=== PATIENT | male | born 1965 | race American Indian/Alaskan Native ===

== ENCOUNTER 2018-05-19 15:13 | Inpatient (IN) | payer OTHER, SELFPAY ==
[2018-05-19] MEDS ORDERED: NACL 0.9% 1000 ML 1,000 ML IV ONE (15:25)
--- NOTE | 2018-05-19 15:25 | Event Note ---
Date: 05/19/18 Patient presents to emergency room with facial pressure, dizziness and abdominal discomfort. Also complains of generalized weakness. No complaint of chest pain. Found to be hypotensive. Blood pressure in the 80s, EKG abnormal without prior for comparison. Brought back to the emergency room, placed in room one, initial resuscitation has been requested/ordered.
[2018-05-19 16:05] LABS: Basophils # (Auto) 0.1 K/mm3 (0.0-0.1); Basophils % (Auto) 0.6 % (0.0-1.8); Eosinophils % (Auto) 0.4 % (0.0-4.3); Hematocrit 51.8 % (35.5-45.6); Lymphocytes % (Auto) 11.5 % (13.4-35.0); Mean Corpuscular HGB Conc 33 % (32-34); Mean Corpuscular Volume 86 fl (84-94); Monocytes # (Auto) 0.6 K/mm3 (0.0-0.8); Monocytes % (Auto) 6.6 % (0.0-7.3); Platelet Count 221 K/mm3 (140-440); Red Blood Count 6.06 M/mm3 (3.65-5.03); Red Cell Distribution Width 13.7 % (13.2-15.2)
[2018-05-19 16:09] LABS: INR 0.97 (0.87-1.13); Partial Thromboplastin Time 21.9 Sec. (24.2-36.6)
[2018-05-19 16:22] LABS: Albumin 4.3 g/dL (3.9-5); Calcium 9.4 mg/dL (8.4-10.2)
[2018-05-19 16:32] LABS: Chol/HDL Ratio 4.42 %
--- NOTE | 2018-05-19 16:46 | Emergency Department Report ---
ED Dizziness HPI - General Chief Complaint: Weakness Stated Complaint: DIZZY/NAUSEA/VOMIT Time Seen by Provider: 05/19/18 16:33 Source: patient Mode of arrival: Ambulatory Limitations: No Limitations - History of Present Illness Initial Comments: Patient is a 53-year-old male that presents emergency room with multiple complaints. Patient is complaining of weakness, dizziness, abdominal pain, nausea vomiting, syncopal episode and chest pain. She states all the symptoms started about 3-4 hours ago And are worsening. Patient states the chest pain as a 3 out of 10 and nonradiating. Patient states that the pain is better with rest and worse with exertion. Patient states the pain is substernal. Patient denies fever or chills. Patient states that his dizziness and shortness of breath are better with rest and worse with exertion. MD Complaint: dizziness, lightheadedness, other -: Sudden - Related Data Home Medications Medication Instructions Recorded Confirmed Last Taken No Known Home Medications [No 05/20/18 05/20/18 Unknown Reported Home Medications] Allergies Allergy/AdvReac Type Severity Reaction Status Date / Time No Known Allergies Allergy Unverified 05/19/18 15:20 ED Review of Systems ROS: Stated complaint: DIZZY/NAUSEA/VOMIT Other details as noted in HPI Constitutional: diaphoresis, weakness. denies: chills, fever Eyes: denies: eye pain, eye discharge, vision change ENT: denies: ear pain, throat pain Respiratory: shortness of breath. denies: cough, wheezing Cardiovascular: chest pain. denies: palpitations Endocrine: no symptoms reported Gastrointestinal: abdominal pain, nausea, vomiting. denies: diarrhea Genitourinary: denies: urgency, dysuria Musculoskeletal: denies: back pain, joint swelling, arthralgia Skin: denies: rash, lesions Neurological: denies: headache, weakness, paresthesias Psychiatric: denies: anxiety, depression Hematological/Lymphatic: denies: easy bleeding, easy bruising ED Past Medical Hx - Past Medical History Previous Medical History?: No - Surgical History Past Surgical History?: No - Family History Family history: no significant - Social History Smoking Status: Never Smoker Substance Use Type: None - Medications Home Medications: Home Medications Medication Instructions Recorded Confirmed Last Taken Type No Known Home Medications [No 05/20/18 05/20/18 Unknown History Reported Home Medications] ED Physical Exam - General Limitations: No Limitations General appearance: alert, in no apparent distress - Head Head exam: Present: atraumatic, normocephalic - Eye Eye exam: Present: normal appearance, PERRL Pupils: Present: normal accommodation - ENT ENT exam: Present: mucous membranes dry - Neck Neck exam: Present: normal inspection - Respiratory Respiratory exam: Present: normal lung sounds bilaterally. Absent: respiratory distress - Cardiovascular Cardiovascular Exam: Present: regular rate, normal rhythm. Absent: systolic murmur, diastolic murmur, rubs, gallop - GI/Abdominal GI/Abdominal exam: Present: soft, normal bowel sounds - Rectal Rectal exam: Present: deferred - Extremities Exam Extremities exam: Present: normal inspection - Back Exam Back exam: Present: normal inspection - Neurological Exam Neurological exam: Present: alert, oriented X3 - Psychiatric Psychiatric exam: Present: normal affect, normal mood - Skin Skin exam: Present: warm, dry, intact, normal color. Absent: rash ED Course Vital Signs 05/19/18 05/19/18 05/19/18 15:20 15:40 17:23 Temperature 97.5 F L 100 F H Pulse Rate 86 100 H Respiratory 16 21 18 Rate Blood Pressure 82/50 Blood Pressure 114/82 165/97 [Right] O2 Sat by Pulse 97 99 98 Oximetry 05/19/18 05/19/18 05/19/18 20:00 21:50 22:53 Temperature 99 F 99.4 F Pulse Rate 99 H 97 H 90 Respiratory 32 H 18 Rate Blood Pressure 174/107 Blood Pressure 157/105 178/107 [Right] O2 Sat by Pulse 98 99 Oximetry 05/19/18 23:00 Temperature Pulse Rate 98 H Respiratory 20 Rate Blood Pressure Blood Pressure 174/107 [Right] O2 Sat by Pulse 99 Oximetry - Consultations Consultation #1: Interventional cardiology consult. dr vogel states is not a STEMI but recommends general cardiology as well as heparinizing the patient. 05/19/18 16:40 Consultation #2: 05/19/18 18:59 Hospitalist consult for admission. Hospitalist to admit patient. ED Medical Decision Making - Lab Data Result diagrams: 05/19/18 15:30 05/19/18 15:30 - EKG Data -: EKG Interpreted by Wy EKG shows normal: sinus rhythm, axis, intervals, QRS complexes Rate: normal - EKG Data Interpretation: other (ST depression noted) - Radiology Data Radiology results: report reviewed All CTs reviewed. CTA positive for Bilateral PEs but no saddle embolism Normal head CT. CT abdomen negative - Medical Decision Making Is a 53-year-old male that presents emergency room with complaints of dizziness, chest pain, weakness and dizziness and syncopal episode. Patient found to have an N STEMI as well as bilateral PEs. Patient placed on heparin drip. Interventional cardiology consultation for abnormal EKG. Patient to be admitted to the hospitalist service as well as a cardiology consult. Patient labs unremarkable except for elevated troponin and hypokalemia. Patient also has a lactic acidosis. Patient was initially hypotensive and tachycardic. Patient gave fluids. Blood pressure improved. - Differential Diagnosis PE. ACS. N STEMI. STEMI. Chest pain. Dizziness. Syncope. Critical Care Time: Yes Critical care attestation.: If time is entered above; I have spent that time in minutes in the direct care of this critically ill patient, excluding procedure time. Critical Care Time: 80 minutes ED Disposition Clinical Impression: NSTEMI (non-ST elevated myocardial infarction), Weakness, Lactic acid acidosis, Tachycardia Chest pain Qualifiers: Chest pain type: unspecified Qualified Code(s): R07.9 - Chest pain, unspecified Nausea & vomiting Qualifiers: Vomiting type: unspecified Vomiting Intractability: intractable Qualified Code(s): R11.2 - Nausea with vomiting, unspecified Hypotension Qualifiers: Hypotension type: unspecified hypotension type Qualified Code(s): I95.9 - Hypotension, unspecified Abdominal pain Qualifiers: Abdominal location: generalized Qualified Code(s): R10.84 - Generalized abdominal pain Sepsis Qualifiers: Sepsis type: sepsis due to unspecified organism Qualified Code(s): A41.9 - Sepsis, unspecified organism Syncope Qualifiers: Syncope type: unspecified Qualified Code(s): R55 - Syncope and collapse Pulmonary embolism Qualifiers: Pulmonary embolism type: unspecified Chronicity: acute Acute cor pulmonale presence: without acute cor pulmonale Qualified Code(s): I26.99 - Other pulmonary embolism without acute cor pulmonale Disposition: OP ADMIT IP TO THIS HOSP Is pt being admited?: Yes Does the pt Need Aspirin: No Condition: Critical Time of Disposition: 18:58
[2018-05-19] MEDS ORDERED: MAXIPIME/NS 2 GM/100 ML 2 GM/100 ML BAG IV ONE (18:09)
[2018-05-19 18:23] LABS: Bilirubin,Urine NEG (Negative); Blood,Urine NEG (Negative); Color,Urine Yellow (Yellow); Granular Casts,Urine 6 /LPF; Mucus,Urine FEW /HPF; Protein,Urine <15 mg/dL mg/dL (Negative); Urobilinogen,Urine < 2.0 mg/dL (<2.0)
--- NOTE | 2018-05-19 18:41 | Cat Scan Report ---
FINAL REPORT PROCEDURE: CT head without contrast. TECHNIQUE: Computerized tomography of the head was performed without contrast material. HISTORY: Syncope, dizziness. COMPARISON: No prior studies are available for comparison. FINDINGS: The ventricles are normal in size. The agrawal matter and white matter appear normal. There are no mass lesions. There is no intracranial hemorrhage. The calvarium appears intact. The mastoid air cells and visualized paranasal sinuses are clear as far as visualized. IMPRESSION: Normal study.
--- NOTE | 2018-05-19 18:49 | Cat Scan Report ---
FINAL REPORT PROCEDURE: CT angiogram chest with contrast. TECHNIQUE: Computerized tomographic angiography of the chest was performed after the IV injection of iodinated nonionic contrast including image processing. The image data was postprocessed using 2-dim ensional multiplanar reformatted (MPR) and 3-dimensional (MIP and/or volume rendered) techniques. HISTORY: Syncope and dizziness, chest pain. COMPARISON: No prior studies are available for comparison. FINDINGS: The trachea and central bronchi appear normal. The lungs are clear and well expanded. There are no pl eural effusions. The thoracic aorta has a normal caliber without evidence of dissection. There is a f illing defect in the main arterial branch supplying the right lower lobe. There is also a filling def ect in the branch supplying the right upper lobe. There is a small filling defect in 1 of the lateral branches in the left lower lobe. The findings represent acute pulmonary emboli. There is no mediasti nal adenopathy. The heart size is normal. The adrenal glands are not enlarged. The thoracic skeleton appears intact. IMPRESSION: Acute pulmonary embolism in both lungs.
[2018-05-19] MEDS ORDERED: HEPARIN 10,000 UNITS/10 ML IV ONE (18:53)
[2018-05-19] MEDS ORDERED: NACL 0.9% 500 ML 500 ML ONE (19:24)
[2018-05-19] MEDS: KCL 10MEQ/100ML 10 MEQ/100 ML BAG IV SCH ×2 (19:48→21:10)
[2018-05-19] MEDS ORDERED: NACL 0.9% 250ML 250 ML ONE ×2 (20:15→22:29)
[2018-05-19] MEDS: HEPARIN/ 0.45% NACL-25,000 UNIT/500 ML 25,000 UNIT/500 ML BAG IV SCH (21:35)
[2018-05-19] MEDS ORDERED: NITROSTAT SL PRN (22:28)
[2018-05-19] MEDS ORDERED: ZOFRAN IV PRN (22:32)
[2018-05-19] MEDS ORDERED: MORPHINE IV PRN (22:32)
[2018-05-19] MEDS ORDERED: TYLENOL PO PRN (22:36)
[2018-05-19] MEDS: NITRO-BID 2% TP SCH (22:53)
[2018-05-19] MEDS ORDERED: ASPIRIN PO ONE (23:00)
[2018-05-19] MEDS ORDERED: K-DUR PO ONE (23:30)
[2018-05-20] MEDS: KCL 10MEQ/100ML 10 MEQ/100 ML BAG IV SCH ×4 (00:41→06:05)
[2018-05-20] MEDS: APRESOLINE IV PRN (00:43)
[2018-05-20 02:12] LABS: Creatine Kinase MB 2.3 ng/mL (0.0-4.0)
[2018-05-20] MEDS: NITRO-BID 2% TP SCH ×4 (06:11→17:28)
[2018-05-20 06:13] LABS: Creatine Kinase MB 2.3 ng/mL (0.0-4.0)
[2018-05-20] MEDS ORDERED: KCL 10MEQ/100ML 10 MEQ/100 ML BAG IV ONE (06:52)
[2018-05-20 08:03] LABS: BUN/Creatinine Ratio 10; Blood Urea Nitrogen 8 mg/dL (9-20); Calcium 8.5 mg/dL (8.4-10.2); Hemolysis Index 21
[2018-05-20] MEDS: NACL 0.9% 1000 ML 1,000 ML IV SCH ×2 (08:11→16:24)
--- NOTE | 2018-05-20 11:30 | History and Physical Report ---
CHIEF COMPLAINT: Weakness. Other complaint included syncopal attack. HISTORY OF PRESENT ILLNESS: The patient is a 53-year-old male who presented to the Emergency Room because of generalized weakness and dizziness and said he had a syncopal attack and also was complaining of chest pain, abdominal pain, nausea and vomiting, and said that the symptoms started about 3-4 hours prior to presentation and symptoms started getting worse. The patient described the chest pain as about 3/10 and nonradiating, which is worse with exertion and better with rest. The pain is located in the substernal area. There was no history of fever or chills. There was no history of cough but there was history of shortness of breath and syncopal attack. PAST MEDICAL HISTORY: Only pertinent for hypertension. FAMILY HISTORY: Noncontributory. SOCIAL HISTORY: The patient does not smoke, does not drink alcohol, does not use illicit drugs and lives with family. MEDICATIONS: The patient is not on any medication. ALLERGIES: There are no known drug allergies. REVIEW OF SYSTEMS: CONSTITUTIONAL: There is no fever or chills and no diaphoresis. HEENT: There is no headache or sore throat. CARDIOVASCULAR SYSTEM: Chest pain is present, no orthopnea. RESPIRATORY SYSTEM: Shortness of breath is present. No cough. GASTROINTESTINAL SYSTEM: There is abdominal pain, nausea, and vomiting, but no diarrhea or constipation. NEUROLOGICAL: There is dizziness and syncopal attack. No change in mental status. MUSCULOSKELETAL: There is no joint pain or swelling. DERMATOLOGICAL SYSTEM: There is no skin rash or itching. GENITOURINARY SYSTEM: There is no dysuria, hematuria, or flank pain. Rest of system review is normal. PHYSICAL EXAMINATION: GENERAL: At the time of exam, the patient was found to be alert, oriented x 3, and not in acute distress. VITAL SIGNS: At the initial time of presentation shows temperature of 97.5 degrees Fahrenheit, pulse of 86, respirations 16, blood pressure 82/50, which later on went up to 174/107, and O2 sat of 97% on room air. HEENT: Showed pupils to be equal, round, reactive to light and accommodation. Extraocular muscles are intact. NECK: Supple with no JVD or carotid bruit. CARDIOVASCULAR SYSTEM: Showed normal first and second heart sounds with no gallops or murmurs. RESPIRATORY SYSTEM: Show reduced air entry on both sides of the lungs with no abnormal breath sounds. GASTROINTESTINAL SYSTEM: Show abdomen to be full, soft, nontender with no organomegaly or rigidity. NEUROLOGIC: Shows no focal deficit. MUSCULOSKELETAL SYSTEM: Show no joint swelling or tenderness. DERMATOLOGICAL SYSTEM: Show no skin rash. GENITOURINARY SYSTEM: Showing no costovertebral angle tenderness. PERTINENT LABORATORY AND IMAGING STUDIES: The patient had CT of the head without contrast done that came back normal and the patient had a CT angiogram of the chest done that shows bilateral pulmonary embolism. Lab results: The patient has CBC done with normal white count, elevated hemoglobin of 17 with elevated hematocrit of 51.8, and normal MCV and CBC differential showing elevated segmented neutrophil of 80.9%. The patient's coagulation studies were unremarkable. The patient's chemistry shows normal sodium, low potassium level of 2.7, normal chloride level with elevated creatinine level of 1.6 and normal BUN. The patient's lactic acid level was high with a value of 2.5. The patient's magnesium level was elevated with a value of 2.4. Troponin level was high with a value of 0.05. The patient's lipid levels show high cholesterol of 230 with high LDL cholesterol of 180. Urinalysis was unremarkable. DIAGNOSES: 1. Bilateral pulmonary embolism. 2. Swe-CW-yhnueyhed myocardial infarction. 3. Hypokalemia. 4. Syncope. 5. Acute kidney injury. PLAN OF CARE: 1. The patient will be admitted as inpatient to Critical Care. 2. The patient will have cardiac enzyme involving troponin, total CK and CK-MB checked serially. 3. The patient will have Cardiology consult with Dr. Caban for NSTEMI. 4. The patient will continue IV heparin started in the Emergency Room. 5. The patient will remain n.p.o. until evaluated by the Cardiology. 6. The patient will be on Coumadin to be dosed and managed by the Pharmacy. 7. The patient will be on nitro paste half anterior chest wall q.i.d. and will be on sublingual nitroglycerin as needed for chest pain with a dose of 0.4 mg q. 5 minutes. 8. The patient will be on IV hydralazine 20 mg every 4 hours as needed for blood pressure above 150/90. 9. The patient will be on p.r.n. medications like Tylenol 650 mg by mouth every 4 hours for fever and headache and will have Doppler ultrasound of the carotids bilaterally for evaluation of syncope. 10. The patient will have 2D echo done this morning because of syncopal attack. 11. The patient will be on IV potassium chloride 10 mEq in 100 mL of normal saline given over 1 hour x 4 doses. The patient will have a single dose of potassium chloride by mouth for management of hypokalemia. 12. The patient will have Nephrology consult with Dr. Villagomez for evaluation of acute kidney injury. JOB# [id number] OCN/NTS
--- NOTE | 2018-05-20 11:38 | Event Note ---
Date: 05/20/18 full consult dictated discussed with Dr. Jessica tolentino
--- NOTE | 2018-05-20 12:01 | Consultation ---
History of Present Illness - Reason for Consult Consult date: 05/20/18 acute renal failure - History of Present Illness This is a 53 y/o male who presented to [facility] yesterday with c/o generalized weakness, dizziness, abdominal pain, nausea, chest pain, and syncopal episode. On admission, SCr level was 1.6, most recent SCr level was 0.8. CTA Chest IV contrast yesterday showed acute bilateral pulmonary embolism, started on heparin drip. We were consulted to evaluate this pt who has JONAH. Pt denies NSAIDs use. Pt doesn't recall any kidney problems to his knowledge. Pt denies vomiting. Medications and Allergies Allergies Allergy/AdvReac Type Severity Reaction Status Date / Time No Known Allergies Allergy Unverified 05/19/18 15:20 Home Medications Medication Instructions Recorded Confirmed Last Taken Type No Known Home Medications [No 05/20/18 05/20/18 Unknown History Reported Home Medications] Active Meds: Active Medications Acetaminophen (Tylenol) 650 mg PO Q4H PRN PRN Reason: Headache Hydralazine HCl (Apresoline) 20 mg IV Q4H PRN PRN Reason: Blood Pressure Last Admin: 05/20/18 00:43 Dose: 20 mg Documented by: Heparin Sodium/Sodium Chloride (Heparin/ 0.45% Nacl-25,000 Unit/500 Ml) 25,000 unit in 500 mls @ 23 mls/hr IV TITR [facility]; Protocol Last Titration: 05/20/18 05:04 Dose: 1,000 units/hr, 20 mls/hr Documented by: Sodium Chloride (Nacl 0.9% 1000 Ml) 1,000 mls @ 50 mls/hr IV DIRECT TANVI Last Admin: 05/20/18 08:11 Dose: 50 mls/hr Documented by: Morphine Sulfate (Morphine) 2 mg IV Q3H PRN PRN Reason: Pain, Moderate (4-6) Nitroglycerin (Nitrostat) 0.4 mg SL .Q5MIN PRN PRN Reason: Chest Pain Nitroglycerin (Nitro-Bid 2%) 0.5 inch TP QIDNTG [facility]; Protocol Last Admin: 05/20/18 06:11 Dose: 0.5 inch Documented by: Ondansetron HCl (Zofran) 4 mg IV Q8H PRN PRN Reason: Nausea And Vomiting Review of Systems Constitutional: fatigue, weakness Cardiovascular: chest pain, syncope, lightheadedness, no shortness of breath Respiratory: no shortness of breath, no dyspnea on exertion Gastrointestinal: abdominal pain, nausea, no diarrhea, no constipation, no hematemesis Genitourinary Male: no dysuria, no hematuria Musculoskeletal: muscle weakness Integumentary: no sores, no wounds Neurological: weakness, syncope Exam - Vital Signs Vital signs: Vital Signs Temp Pulse Resp BP Pulse Ox 97.5 F L 86 16 82/50 97 05/19/18 15:20 05/19/18 15:20 05/19/18 15:20 05/19/18 15:20 05/19/18 15:20 - General Appearance General appearance: well-developed EENT: ATNC Neck: Present: neck supple Respiratory: Clear to Ascultation Heart: regular, S1S2 Gastrointestinal: Present: normoactive bowel sounds. Absent: tenderness Integumentary: warm and dry Neurologic: alert and oriented x3 Musculoskeletal: Present: other (no edema to BLE) Psychiatric: mood/affect appropriate, cooperative Results - Lab Results 05/19/18 15:30 05/20/18 07:12 Most recent lab results Calcium 8.5 mg/dL (8.4-10.2) 05/20/18 07:12 Magnesium 2.10 mg/dL (1.7-2.3) 05/19/18 23:03 Assessment and Plan Acute Kidney Injury secondary to prerenal and ERVIN: - Renal function reviewed, SCr level was 0.8 today, yesterday's SCr level was 1.6 - S/p CTA chest IV contrast on 05/19/18 - On 0.9% NS infusion at 50 ml/hr - Obtain urine lytes - Check PTH and phosphorus - Hold off on Renal US for now - Renally dose meds - Leach Catheter: No - Renal plan d/w Dr Aguilar Acute Bilateral Pulmonary Embolism: - S/p CTA Chest IV contrast on 05/19/18 showed acute bilateral pulmonary embolism - On heparin drip - Vascular surgery consulted, f/u recs Hypokalemia: - Replete - Magnesium level pending Elevated Troponin: - Questionable NSTEMI: - Cardiology consulted, f/u recs
[2018-05-20] MEDS: HEPARIN/ 0.45% NACL-25,000 UNIT/500 ML 25,000 UNIT/500 ML BAG IV SCH (12:17)
--- NOTE | 2018-05-20 12:44 | Consultation ---
History of Present Illness - Reason for Consult Consult date: 05/20/18 PE Requesting physician: ABRAM KIDD - History of Present Illness Patient came in to ED for 1 day history of dizziness and some chest pain. She had CT angiogram and was found to have pulmonary emboli mainly in the right lower lobe as well as very small subsegmental on the left without CT evidence of heart strain. He has no history of blood clots, no family history of hypercoagulable state. 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 Now patient denies shortness of breath at rest or on exertion, ambulating well without oxygen. Past History Past Medical History: hypertension Medications and Allergies Allergies Allergy/AdvReac Type Severity Reaction Status Date / Time No Known Allergies Allergy Unverified 05/19/18 15:20 Home Medications Medication Instructions Recorded Confirmed Last Taken Type No Known Home Medications [No 05/20/18 05/20/18 Unknown History Reported Home Medications] Active Meds: Active Medications Acetaminophen (Tylenol) 650 mg PO Q4H PRN PRN Reason: Headache Hydralazine HCl (Apresoline) 20 mg IV Q4H PRN PRN Reason: Blood Pressure Last Admin: 05/20/18 00:43 Dose: 20 mg Documented by: Heparin Sodium/Sodium Chloride (Heparin/ 0.45% Nacl-25,000 Unit/500 Ml) 25,000 unit in 500 mls @ 23 mls/hr IV TITR [facility]; Protocol Last Admin: 05/20/18 12:17 Dose: 1,000 units/hr, 20 mls/hr Documented by: Sodium Chloride (Nacl 0.9% 1000 Ml) 1,000 mls @ 50 mls/hr IV DIRECT TANVI Last Admin: 05/20/18 08:11 Dose: 50 mls/hr Documented by: Morphine Sulfate (Morphine) 2 mg IV Q3H PRN PRN Reason: Pain, Moderate (4-6) Nitroglycerin (Nitrostat) 0.4 mg SL .Q5MIN PRN PRN Reason: Chest Pain Nitroglycerin (Nitro-Bid 2%) 0.5 inch TP QIDNTG [facility]; Protocol Last Admin: 05/20/18 06:11 Dose: 0.5 inch Documented by: Ondansetron HCl (Zofran) 4 mg IV Q8H PRN PRN Reason: Nausea And Vomiting Warfarin Sodium (Coumadin) 10 mg PO DAILY@1700 TANVI Review of Systems All systems: negative (mentioned in HPI) Exam - Constitutional Vitals: Temp Pulse Resp BP Pulse Ox 98.4 F 96 H 18 153/91 100 05/20/18 11:41 05/20/18 11:41 05/20/18 11:41 05/20/18 11:41 05/20/18 11:41 General appearance: Present: no acute distress - Cardiovascular Heart Sounds: Present: S1 & S2 - Extremities Extremities: no ischemia, pulses symmetrical, No edema Peripheral Pulses: within normal limits Results - Labs CBC & Chem 7: 05/19/18 15:30 05/20/18 07:12 Labs: Abnormal lab results 05/19/18 05/19/18 05/19/18 Range/Units 15:30 15:30 15:30 RBC 6.06 H (3.65-5.03) M/mm3 Hgb 17.0 H (11.8-15.2) gm/dl Hct 51.8 H (35.5-45.6) % Lymph % (Auto) 11.5 L (13.4-35.0) % Lymph # 1.0 L (1.2-5.4) K/mm3 Seg Neutrophils % 80.9 H (40.0-70.0) % APTT 21.9 L (24.2-36.6) Sec. Heparin Anti-Xa Level (0.3-0.7) U.I./ml Potassium 2.7 L* (3.6-5.0) mmol/L BUN (9-20) mg/dL Creatinine 1.6 H (0.8-1.5) mg/dL Glucose 119 H (75-100) mg/dL Lactic Acid (0.7-2.0) mmol/L Magnesium 2.40 H (1.7-2.3) mg/dL Total Creatine Kinase (55-170) units/L Troponin T 0.054 H (0.00-0.029) ng/mL Cholesterol 230 H (50-199) mg/dL LDL Cholesterol Direct 180 H (50-130) mg/dL 05/19/18 05/19/18 05/19/18 Range/Units 17:19 18:32 23:03 RBC (3.65-5.03) M/mm3 Hgb (11.8-15.2) gm/dl Hct (35.5-45.6) % Lymph % (Auto) (13.4-35.0) % Lymph # (1.2-5.4) K/mm3 Seg Neutrophils % (40.0-70.0) % APTT (24.2-36.6) Sec. Heparin Anti-Xa Level (0.3-0.7) U.I./ml Potassium (3.6-5.0) mmol/L BUN (9-20) mg/dL Creatinine (0.8-1.5) mg/dL Glucose (75-100) mg/dL Lactic Acid 3.90 H* 2.50 H* 2.30 H* (0.7-2.0) mmol/L Magnesium (1.7-2.3) mg/dL Total Creatine Kinase (55-170) units/L Troponin T (0.00-0.029) ng/mL Cholesterol (50-199) mg/dL LDL Cholesterol Direct (50-130) mg/dL 05/20/18 05/20/18 05/20/18 Range/Units 01:27 03:50 05:38 RBC (3.65-5.03) M/mm3 Hgb (11.8-15.2) gm/dl Hct (35.5-45.6) % Lymph % (Auto) (13.4-35.0) % Lymph # (1.2-5.4) K/mm3 Seg Neutrophils % (40.0-70.0) % APTT (24.2-36.6) Sec. Heparin Anti-Xa Level 1.04 H (0.3-0.7) U.I./ml Potassium (3.6-5.0) mmol/L BUN (9-20) mg/dL Creatinine (0.8-1.5) mg/dL Glucose (75-100) mg/dL Lactic Acid (0.7-2.0) mmol/L Magnesium (1.7-2.3) mg/dL Total Creatine Kinase 296 H 301 H (55-170) units/L Troponin T (0.00-0.029) ng/mL Cholesterol (50-199) mg/dL LDL Cholesterol Direct (50-130) mg/dL 05/20/18 Range/Units 07:12 RBC (3.65-5.03) M/mm3 Hgb (11.8-15.2) gm/dl Hct (35.5-45.6) % Lymph % (Auto) (13.4-35.0) % Lymph # (1.2-5.4) K/mm3 Seg Neutrophils % (40.0-70.0) % APTT (24.2-36.6) Sec. Heparin Anti-Xa Level (0.3-0.7) U.I./ml Potassium (3.6-5.0) mmol/L BUN 8 L (9-20) mg/dL Creatinine (0.8-1.5) mg/dL Glucose 112 H (75-100) mg/dL Lactic Acid (0.7-2.0) mmol/L Magnesium (1.7-2.3) mg/dL Total Creatine Kinase (55-170) units/L Troponin T (0.00-0.029) ng/mL Cholesterol (50-199) mg/dL LDL Cholesterol Direct (50-130) mg/dL Assessment and Plan Pulmonary embolism Patient appears very comfortable on room air at rest or ambulating. He denies any discomfort. No vascular intervention by pharmacal mechanical thrombolysis necessary because it would carry risk of bleeding without having benefit. this patient is stable and has no oxygen requirements. Recommend to continue anticoagulation, may initiate oral anticoagulation, consider hematology consult, venous duplex
--- NOTE | 2018-05-20 12:54 | Progress Note ---
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 On admission patient was noted to have bilateral pulmonary embolism Bilateral pulmonary embolism Acute kidney injury secondary to visible nephropathy Non ST elevation [place] type II Hypokalemia Syncope Plan Continue anticoagulation Discussed duration of treatment with patient send hypercoagulable work up outpatient hematology eval recommend compression staocking while at work post treatment for the current PE Encourage ambulation Vascular conuslt for consideration for EKOS Nephrology and Cardiac consult noted. Continue heparin drip. May bridge to coumadin or Eliquis based on affordability Plan discussed with patient and family and settlement clerk in detail History Interval history: Patient is seen today for: Pulmonary embolism following presentation for syncope Seen and examined at bedside; 24hour events reviewed; nursing staff ; no adverse overnight events reported to me; Denies any chest pain, nausea, vomiting, diarrhea No fever noted blood pressure controlled Hospitalist Physical - Physical exam Narrative exam: VITAL SIGNS: Reviewed. GENERAL: The patient appeared well nourished and normally developed. Vital signs as documented. HEAD: No signs of head trauma. EYES: Pupils are equal. Extraocular motions intact. EARS: Hearing grossly intact. MOUTH: Oropharynx is normal. NECK: No adenopathy, no JVD. CHEST: Chest with clear breath sounds bilaterally. No wheezes, rales, or rhonchi. CARDIAC: Regular rate and rhythm. S1 and S2, without murmurs, gallops, or rubs. VASCULAR: No Edema. Peripheral pulses normal and equal in all extremities. ABDOMEN: Soft, without detectable tenderness. No sign of distention. No rebound or guarding, and no masses palpated. Bowel Sounds normal. MUSCULOSKELETAL: Good range of motion of all major joints. Extremities without clubbing, cyanosis or edema. NEUROLOGIC EXAM: Alert and oriented x 3. No focal sensory or strength deficits. Speech normal. Follows commands. PSYCHIATRIC: Mood normal. SKIN: No rash or lesions. - Constitutional Vitals: Temp Pulse Resp BP Pulse Ox 98.4 F 87 18 144/90 100 05/20/18 11:41 05/20/18 12:44 05/20/18 11:41 05/20/18 12:44 05/20/18 11:41 Results - Labs CBC & Chem 7: 05/19/18 15:30 05/20/18 07:12 Labs: Laboratory Last Values WBC 9.1 K/mm3 (4.5-11.0) 05/19/18 15:30 RBC 6.06 M/mm3 (3.65-5.03) H 05/19/18 15:30 Hgb 17.0 gm/dl (11.8-15.2) H 05/19/18 15:30 Hct 51.8 % (35.5-45.6) H 05/19/18 15:30 MCV 86 fl (84-94) 05/19/18 15:30 MCH 28 pg (28-32) 05/19/18 15:30 MCHC 33 % (32-34) 05/19/18 15:30 RDW 13.7 % (13.2-15.2) 05/19/18 15:30 Plt Count 221 K/mm3 (140-440) 05/19/18 15:30 Lymph % (Auto) 11.5 % (13.4-35.0) L 05/19/18 15:30 [place] % (Auto) 6.6 % (0.0-7.3) 05/19/18 15:30 Eos % (Auto) 0.4 % (0.0-4.3) 05/19/18 15:30 Baso % (Auto) 0.6 % (0.0-1.8) 05/19/18 15:30 Lymph # 1.0 K/mm3 (1.2-5.4) L 05/19/18 15:30 [place] # 0.6 K/mm3 (0.0-0.8) 05/19/18 15:30 Eos # 0.0 K/mm3 (0.0-0.4) 05/19/18 15:30 Baso # 0.1 K/mm3 (0.0-0.1) 05/19/18 15:30 Seg Neutrophils % 80.9 % (40.0-70.0) H 05/19/18 15:30 Seg Neutrophils # 7.4 K/mm3 (1.8-7.7) 05/19/18 15:30 PT 13.3 Sec. (12.2-14.9) 05/19/18 15:30 INR 0.97 (0.87-1.13) 05/19/18 15:30 APTT 21.9 Sec. (24.2-36.6) L 05/19/18 15:30 Heparin Anti-Xa Level 0.69 U.I./ml (0.3-0.7) 05/20/18 11:12 Sodium 139 mmol/L (137-145) 05/20/18 07:12 Potassium 3.9 mmol/L (3.6-5.0) D 05/20/18 07:12 Chloride 104.8 mmol/L (98-107) 05/20/18 07:12 Carbon Dioxide 22 mmol/L (22-30) 05/20/18 07:12 Anion Gap 16 mmol/L 05/20/18 07:12 BUN 8 mg/dL (9-20) L 05/20/18 07:12 Creatinine 0.8 mg/dL (0.8-1.5) 05/20/18 07:12 Estimated GFR > 60 ml/min 05/20/18 07:12 BUN/Creatinine Ratio 10 % 05/20/18 07:12 Glucose 112 mg/dL (75-100) H 05/20/18 07:12 Lactic Acid 1.80 mmol/L (0.7-2.0) 05/20/18 01: Calcium 8.5 mg/dL (8.4-10.2) 05/20/18 07:12 Magnesium 2.10 mg/dL (1.7-2.3) 05/19/18 23:03 Total Bilirubin 0.40 mg/dL (0.1-1.2) 05/19/18 15:30 AST 21 units/L (5-40) 05/19/18 15:30 ALT 26 units/L (7-56) 05/19/18 15:30 Alkaline Phosphatase 52 units/L (35-129) 05/19/18 15:30 Total Creatine Kinase 301 units/L (55-170) H 05/20/18 05:38 CK-MB (CK-2) 2.3 ng/mL (0.0-4.0) 05/20/18 05:38 CK-MB (CK-2) Rel Index 0.7 (0-4) 05/20/18 05:38 Troponin T < 0.010 ng/mL (0.00-0.029) 05/20/18 05:38 NT-Pro-B Natriuret Pep 73.79 pg/mL (0-900) 05/19/18 16:40 Total Protein 7.8 g/dL (6.3-8.2) 05/19/18 15:30 Albumin 4.3 g/dL (3.9-5) 05/19/18 15:30 Albumin/Globulin Ratio 1.2 % 05/19/18 15:30 Triglycerides 107 mg/dL (2-149) 05/19/18 15:30 Cholesterol 230 mg/dL (50-199) H 05/19/18 15:30 LDL Cholesterol Direct 180 mg/dL (50-130) H 05/19/18 15:30 HDL Cholesterol 52 mg/dL (40-59) 05/19/18 15:30 Cholesterol/HDL Ratio 4.42 % 05/19/18 15:30 Urine Color Yellow (Yellow) 05/19/18 Unknown Urine Turbidity Clear (Clear) 05/19/18 Unknown Urine pH 6.0 (5.0-7.0) 05/19/18 Unknown Ur Specific [place] 1.009 (1.003-1.030) 05/19/18 Unknown Urine Protein <15 mg/dl mg/dL (Negative) 05/19/18 Unknown Urine Glucose (UA) Neg mg/dL (Negative) 05/19/18 Unknown Urine Ketones Neg mg/dL (Negative) 05/19/18 Unknown Urine Blood Neg (Negative) 05/19/18 Unknown Urine Nitrite Neg (Negative) 05/19/18 Unknown Urine Bilirubin Neg (Negative) 05/19/18 Unknown Urine Urobilinogen < 2.0 mg/dL (<2.0) 05/19/18 Unknown Ur Leukocyte Esterase Neg (Negative) 05/19/18 Unknown Urine WBC (Auto) 1.0 /HPF (0.0-6.0) 05/19/18 Unknown Urine RBC (Auto) 1.0 /HPF (0.0-6.0) 05/19/18 Unknown U Epithel Cells (Auto) < 1.0 /HPF (0-13.0) 05/19/18 Unknown Granular Casts 6 /LPF 05/19/18 Unknown Urine Mucus Few /HPF 05/19/18 Unknown Blood Type O POSITIVE 05/19/18 15:30 Antibody Screen Negative 05/19/18 15:30 - Imaging and Cardiology CT scan - chest: image reviewed (bilateral pulmonary embolism)
[2018-05-20] MEDS: COUMADIN PO SCH (17:30)
--- NOTE | 2018-05-20 21:42 | Consultation ---
CARDIOLOGY CONSULTATION LOCATION: Room 453. REFERRING PHYSICIAN: David Lopez MD REASON FOR CONSULTATION: Advice and opinion regarding abnormal EKG. HISTORY OF PRESENT ILLNESS: The patient is an exceedingly pleasant 53-year-old [place] male who presents with a syncopal episode, dizziness and shortness of breath. No real chest pain to note. No fever, chills, nausea, or vomiting. He did fall and hit his mouth, has some bleeding from his lips from the trauma. Again, denies chest pain. No abdominal pain, melena, hemoptysis, hematemesis, feeling much better now. No known home medications, was seeing primary physician at [facility], apparently was taken off blood pressure medicine, history of hypertension. No other history. He saw doctor most recently 4-5 months ago. is at bedside with home. SOCIAL HISTORY: Nonsmoker, nondrinker, emigrated from [facility]. FAMILY HISTORY: No family history of premature heart disease, arterial clots, or miscarriages. PHYSICAL EXAMINATION: VITAL SIGNS: Blood pressure is 120/80, afebrile. Tele reveals sinus rhythm. Heart rate in the 90s and 100s. O2 sat is 99% on room air. GENERAL: This is a middle-aged gentleman in no apparent distress, oriented x 3. HEENT: Sclerae are anicteric. NECK: Supple, no masses, no JVD. CHEST: Clear to auscultation bilaterally. Good air movement. CARDIOVASCULAR: Regular S1, S2. ABDOMEN: Soft, nontender, nondistended. Normoactive bowel sounds in 4 quadrants. No mass or bruits. EXTREMITIES: No cyanosis, clubbing, edema. Good peripheral pulses. SKIN: Intact. No rashes. LABORATORY DATA: EKG reveals normal sinus rhythm, left ventricular hypertrophy and secondary ST changes. Tele reveals heart rate between 90 and 110, sinus rhythm. CT chest shows bilateral PE. Hemoglobin 17.0, hematocrit 51, WBC is 9.1, platelet 221. Coags are normal. Initial potassium was 2.7, repleted now 3.9. Initial lactic acid was 2.3, now 1.8. Initial troponin was 0.05, second troponin is normal. Echocardiogram is pending. Head CT is normal. ASSESSMENT: In summary, the patient is a pleasant 53-year-old [place] male: 1. Acute bilateral pulmonary embolism with clinical manifestations of relative hypotension, dizziness, and resultant syncope. Now mildly tachycardic, not hypoxemic, feeling clinically much improved. Continue IV fluid. Heparin therapy. Vascular consultation for Echo, followup on echocardiogram. The patient has no family history of arterial thrombus and this is an unprovoked pulmonary embolus. 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 Recommend Hematology consult for primary hypercoagulable state in the setting of an unprovoked bilateral life threatening pulmonary embolus, will likely need lifelong systemic anticoagulation. Continue current therapies. Continue IV fluid. Thank you for this consultation. I will be happy to follow along with you. JOB# [id number] ALISSA/RITO
[2018-05-21] MEDS: HEPARIN/ 0.45% NACL-25,000 UNIT/500 ML 25,000 UNIT/500 ML BAG IV SCH ×2 (01:26→13:45)
[2018-05-21 05:42] LABS: Hematocrit 43.1 % (35.5-45.6); Hemoglobin 14.2 gm/dl (11.8-15.2); Mean Corpuscular HGB Conc 33 % (32-34); Mean Corpuscular Volume 84 fl (84-94); Platelet Count 163 K/mm3 (140-440); Red Blood Count 5.11 M/mm3 (3.65-5.03); Red Cell Distribution Width 13.6 % (13.2-15.2)
[2018-05-21 05:54] LABS: INR 0.99 (0.87-1.13)
[2018-05-21] MEDS: APRESOLINE IV PRN (05:57)
[2018-05-21] MEDS: NITRO-BID 2% TP SCH ×4 (05:58→17:17)
[2018-05-21 06:06] LABS: BUN/Creatinine Ratio 11; Blood Urea Nitrogen 9 mg/dL (9-20); Calcium 8.6 mg/dL (8.4-10.2); Hemolysis Index 4
--- NOTE | 2018-05-21 09:57 | Progress Note ---
Assessment and Plan Acute Kidney Injury secondary to prerenal and ERVIN: - resolved - Renally dose meds - Leach Catheter: No Acute Bilateral Pulmonary Embolism: - S/p CTA Chest IV contrast on 05/19/18 showed acute bilateral pulmonary embolism - On heparin drip - Vascular surgery consulted, f/u recs Hypokalemia: - Repleteas needed Elevated Troponin: - Questionable NSTEMI: - Cardiology consulted, f/u recs will sign off, please reconsult if needed Subjective Date of service: 05/21/18 Principal diagnosis: acute renal failure Interval history: denies acute issues, comfortable Objective - Vital Signs Vital signs: Vital Signs - 12hr 05/20/18 05/20/18 05/21/18 22:38 23:53 04:38 Temperature 98.4 F 98.0 F Pulse Rate 98 H 89 Pulse Rate [ 80 Left Radial] Respiratory 18 18 18 Rate Blood Pressure 155/89 175/110 O2 Sat by Pulse 99 100 Oximetry 05/21/18 05/21/18 05/21/18 05:57 05:58 08:33 Temperature 98.8 F Pulse Rate 86 86 121 H Pulse Rate [ Left Radial] Respiratory 18 Rate Blood Pressure 175/110 175/110 171/98 O2 Sat by Pulse 98 Oximetry - General Appearance General appearance: well-developed, well-nourished, appears stated age EENT: ATNC, PERRL, mucous membranes moist Neck: no JVD, no carotid bruit Respiratory: Present: Clear to Ascultation. Absent: Rales, Ronchi Cardiology: regular, S1S2 Gastrointestinal: normoactive bowel sounds, no tenderness, no distended Integumentary: no rash, warm and dry Neurologic: no focal deficit, no asterixis, alert and oriented x3 Musculoskeletal: other (no edema in BLE) - Lab 05/21/18 04:32 05/21/18 04:32 Most recent lab results Calcium 8.6 mg/dL (8.4-10.2) 05/21/18 04:32 Phosphorus 2.80 mg/dL (2.5-4.5) 05/21/18 04:32 Magnesium 2.00 mg/dL (1.7-2.3) 05/21/18 04:32 Urine Creatinine 132.0 mg/dL (0.1-20.0) H 01/27/19 01:17 Urine Sodium 45 mmol/L 05/20/18 01:17 Urine Total Protein 28 mg/dL (5-11.8) H 05/20/18 01:17 Medications & Allergies - Medications Allergies/Adverse Reactions: Allergies No Known Allergies Allergy (Unverified 05/19/18 15:20) Home Medications: Home Medications Medication Instructions Recorded Confirmed Last Taken Type No Known Home Medications [No 05/20/18 05/20/18 Unknown History Reported Home Medications] Active Medications: Generic Name Dose Route Start Last Admin Trade Name Freq PRN Reason Stop Dose Admin Acetaminophen 650 mg 05/19/18 22:36 05/20/18 16:29 Tylenol PO 650 mg Q4H PRN Administration Headache Hydralazine HCl 20 mg 05/19/18 23:59 05/21/18 05:57 Apresoline IV 20 mg Q4H PRN Administration Blood Pressure Heparin Sodium/Sodium Chloride 25,000 unit in 500 mls @ 23 mls/hr 05/19/18 19:00 05/21/18 01:26 Heparin/ 0.45% Nacl-25,000 Unit/500 Ml IV 1,000 units/hr TITR TANVI 20 mls/hr Administration Protocol 1,150 UNITS/HR Sodium Chloride 1,000 mls @ 50 mls/hr 05/20/18 02:00 05/20/18 16:24 Nacl 0.9% 1000 Ml IV 50 mls/hr DIRECT TANVI Administration Morphine Sulfate 2 mg 05/19/18 22:32 Morphine IV Q3H PRN Pain, Moderate (4-6) Nitroglycerin 0.4 mg 05/19/18 22:28 Nitrostat SL .Q5MIN PRN Chest Pain Nitroglycerin 0.5 inch 05/19/18 23:00 05/21/18 05:58 Nitro-Bid 2% TP Not Given [facility] Protocol Ondansetron HCl 4 mg 05/19/18 22:32 Zofran IV Q8H PRN Nausea And Vomiting Warfarin Sodium 10 mg 05/20/18 17:00 05/20/18 17:30 Coumadin PO 10 mg DAILY@1700 TANVI Administration
--- NOTE | 2018-05-21 10:38 | Progress Note ---
Assessment and Plan Obtain orthostatics. Cont to monitor on telemetry. Optimize BP and HR - initiate lopressor. The patient has been seen in conjunction with Dr. Lua who agrees with the assessment and plan of care. - Patient Problems (1) Acute pulmonary embolism Current Visit: Yes Status: Acute (2) Syncope Current Visit: Yes Status: Acute Qualifiers: Syncope type: unspecified Qualified Code(s): R55 - Syncope and collapse (3) Sinus tachycardia Current Visit: Yes Status: Acute (4) HTN (hypertension) Current Visit: Yes Status: Chronic Subjective Date of service: 05/21/18 Principal diagnosis: PE Interval history: pt resting in bed, c/o lightheadedness with standing upright. tele reviewed - in SR/ST overnight. Objective Last Vital Signs Temp 98.8 F 05/21/18 08:33 Pulse 86 05/21/18 10:27 Resp 18 05/21/18 08:33 BP 175/110 05/21/18 10:27 Pulse Ox 98 05/21/18 08:33 - Physical Examination General: No Apparent Distress HEENT: Positive: PERRL Neck: Positive: neck supple Cardiac: Positive: Regular Rhythm, S1/S2 Lungs: Positive: clear to auscultation - Labs and Meds Coagulation 05/21/18 Range/Units 04:32 PT 13.5 (12.2-14.9) Sec. INR 0.99 (0.87-1.13) CBC 05/21/18 Range/Units 04:32 WBC 6.9 (4.5-11.0) K/mm3 RBC 5.11 H (3.65-5.03) M/mm3 Hgb 14.2 (11.8-15.2) gm/dl Hct 43.1 D (35.5-45.6) % Plt Count 163 (140-440) K/mm3 Comprehensive Metabolic Panel 05/21/18 Range/Units 04:32 Sodium 141 (137-145) mmol/L Potassium 3.9 (3.6-5.0) mmol/L Chloride 107.8 H (98-107) mmol/L Carbon Dioxide 22 (22-30) mmol/L BUN 9 (9-20) mg/dL Creatinine 0.8 (0.8-1.5) mg/dL Glucose 108 H (75-100) mg/dL Calcium 8.6 (8.4-10.2) mg/dL
[2018-05-21] MEDS ORDERED: COREG PO SCH (11:00)
[2018-05-21] MEDS: LOPRESSOR PO SCH ×2 (13:15→22:17)
--- NOTE | 2018-05-21 16:26 | Progress Note ---
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 On admission patient was noted to have bilateral pulmonary embolism Bilateral pulmonary embolism Acute kidney injury secondary to visible nephropathy Non ST elevation [place] type II secondary coagulation Hypertensive urgency Hypokalemia Syncope Plan Continue anticoagulation Discussed duration of treatment with patient send hypercoagulable work up outpatient hematology eval recommend compression stocking while at work post treatment for the current PE Encourage ambulation Vascular conuslt for consideration for EKOS Nephrology and Cardiac consult noted. Continue heparin drip. May bridge to coumadin or Eliquis based on affordability Plan discussed with patient and family and assistant surveyor in detail still ongoing work up for near syncope. CM working on [employer] approval. History Interval history: Patient is seen today for: Pulmonary embolism following presentation for syncope Seen and examined at bedside; 24hour events reviewed; nursing staff ; no adverse overnight events reported to me; Denies any chest pain, nausea, vomiting, diarrhea No fever noted Reports dizziness with change in position. Hospitalist Physical - Physical exam Narrative exam: VITAL SIGNS: Reviewed. GENERAL: The patient appeared well nourished and normally developed. Vital signs as documented. HEAD: No signs of head trauma. EYES: Pupils are equal. Extraocular motions intact. EARS: Hearing grossly intact. MOUTH: Oropharynx is normal. bleeding gum NECK: No adenopathy, no JVD. CHEST: Chest with clear breath sounds bilaterally. No wheezes, rales, or rhonchi. CARDIAC: Regular rate and rhythm. S1 and S2, without murmurs, gallops, or rubs. VASCULAR: No Edema. Peripheral pulses normal and equal in all extremities. ABDOMEN: Soft, without detectable tenderness. No sign of distention. No rebound or guarding, and no masses palpated. Bowel Sounds normal. MUSCULOSKELETAL: Good range of motion of all major joints. Extremities without clubbing, cyanosis or edema. NEUROLOGIC EXAM: Alert and oriented x 3. No focal sensory or strength deficits. Speech normal. Follows commands. PSYCHIATRIC: Mood normal. SKIN: No rash or lesions. - Constitutional Vitals: Temp Pulse Resp BP Pulse Ox 98.8 F 91 H 18 148/97 99 05/21/18 08:33 05/21/18 15:59 05/21/18 15:59 05/21/18 15:59 05/21/18 12:06 General appearance: Present: no acute distress Results - Labs CBC & Chem 7: 05/21/18 04:32 05/21/18 04:32 Labs: Laboratory Last Values WBC 6.9 K/mm3 (4.5-11.0) 05/21/18 04:32 RBC 5.11 M/mm3 (3.65-5.03) H 05/21/18 04:32 Hgb 14.2 gm/dl (11.8-15.2) 05/21/18 04:32 Hct 43.1 % (35.5-45.6) D 05/21/18 04:32 MCV 84 fl (84-94) 05/21/18 04:32 MCH 28 pg (28-32) 05/21/18 04:32 MCHC 33 % (32-34) 05/21/18 04:32 RDW 13.6 % (13.2-15.2) 05/21/18 04:32 Plt Count 163 K/mm3 (140-440) 05/21/18 04:32 Lymph % (Auto) 11.5 % (13.4-35.0) L 05/19/18 15:30 [place] % (Auto) 6.6 % (0.0-7.3) 05/19/18 15:30 Eos % (Auto) 0.4 % (0.0-4.3) 05/19/18 15:30 Baso % (Auto) 0.6 % (0.0-1.8) 05/19/18 15:30 Lymph # 1.0 K/mm3 (1.2-5.4) L 05/19/18 15:30 [place] # 0.6 K/mm3 (0.0-0.8) 05/19/18 15:30 Eos # 0.0 K/mm3 (0.0-0.4) 05/19/18 15:30 Baso # 0.1 K/mm3 (0.0-0.1) 05/19/18 15:30 Seg Neutrophils % 80.9 % (40.0-70.0) H 05/19/18 15:30 Seg Neutrophils # 7.4 K/mm3 (1.8-7.7) 05/19/18 15:30 PT 13.5 Sec. (12.2-14.9) 05/21/18 04:32 INR 0.99 (0.87-1.13) 05/21/18 04:32 APTT 21.9 Sec. (24.2-36.6) L 05/19/18 15:30 Heparin Anti-Xa Level 0.89 U.I./ml (0.3-0.7) H 05/21/18 12:59 Sodium 141 mmol/L (137-145) 05/21/18 04:32 Potassium 3.9 mmol/L (3.6-5.0) 05/21/18 04:32 Chloride 107.8 mmol/L (98-107) H 05/21/18 04:32 Carbon Dioxide 22 mmol/L (22-30) 05/21/18 04:32 Anion Gap 15 mmol/L 05/21/18 04:32 BUN 9 mg/dL (9-20) 05/21/18 04:32 Creatinine 0.8 mg/dL (0.8-1.5) 05/21/18 04:32 Estimated GFR > 60 ml/min 05/21/18 04:32 BUN/Creatinine Ratio 11 % 05/21/18 04:32 Glucose 108 mg/dL (75-100) H 05/21/18 04:32 Lactic Acid 1.80 mmol/L (0.7-2.0) 05/20/18 01:27 Calcium 8.6 mg/dL (8.4-10.2) 05/21/18 04:32 Phosphorus 2.80 mg/dL (2.5-4.5) 05/21/18 04:32 Magnesium 2.00 mg/dL (1.7-2.3) 05/21/18 04:32 Total Bilirubin 0.40 mg/dL (0.1-1.2) 05/19/18 15:30 AST 21 units/L (5-40) 05/19/18 15:30 ALT 26 units/L (7-56) 05/19/18 15:30 Alkaline Phosphatase 52 units/L (35-129) 05/19/18 15:30 Total Creatine Kinase 301 units/L (55-170) H 05/20/18 05:38 CK-MB (CK-2) 2.3 ng/mL (0.0-4.0) 05/20/18 05:38 CK-MB (CK-2) Rel Index 0.7 (0-4) 05/20/18 05:38 Troponin T < 0.010 ng/mL (0.00-0.029) 05/20/18 05:38 NT-Pro-B Natriuret Pep 73.79 pg/mL (0-900) 05/19/18 16:40 Total Protein 7.8 g/dL (6.3-8.2) 05/19/18 15:30 Albumin 4.3 g/dL (3.9-5) 05/19/18 15:30 Albumin/Globulin Ratio 1.2 % 05/19/18 15:30 Triglycerides 107 mg/dL (2-149) 05/19/18 15:30 Cholesterol 230 mg/dL (50-199) H 05/19/18 15:30 LDL Cholesterol Direct 180 mg/dL (50-130) H 05/19/18 15:30 HDL Cholesterol 52 mg/dL (40-59) 05/19/18 15:30 Cholesterol/HDL Ratio 4.42 % 05/19/18 15:30 PTH Intact 45.17 pg/mL (15-65) 05/21/18 04:32 Urine Color Yellow (Yellow) 05/19/18 Unknown Urine Turbidity Clear (Clear) 05/19/18 Unknown Urine pH 6.0 (5.0-7.0) 05/19/18 Unknown Ur Specific [place] 1.009 (1.003-1.030) 05/19/18 Unknown Urine Protein <15 mg/dl mg/dL (Negative) 05/19/18 Unknown Urine Glucose (UA) Neg mg/dL (Negative) 05/19/18 Unknown Urine Ketones Neg mg/dL (Negative) 05/19/18 Unknown Urine Blood Neg (Negative) 05/19/18 Unknown Urine Nitrite Neg (Negative) 05/19/18 Unknown Urine Bilirubin Neg (Negative) 05/19/18 Unknown Urine Urobilinogen < 2.0 mg/dL (<2.0) 05/19/18 Unknown Ur Leukocyte Esterase Neg (Negative) 05/19/18 Unknown Urine WBC (Auto) 1.0 /HPF (0.0-6.0) 05/19/18 Unknown Urine RBC (Auto) 1.0 /HPF (0.0-6.0) 05/19/18 Unknown U Epithel Cells (Auto) < 1.0 /HPF (0-13.0) 05/19/18 Unknown Granular Casts 6 /LPF 05/19/18 Unknown Urine Mucus Few /HPF 05/19/18 Unknown Urine Creatinine 132.0 mg/dL (0.1-20.0) H 05/20/18 01:17 Urine Microalbumin < 1.2 mg/dL (0.1-34.0) 05/20/18 01:17 Microalb/Creat Ratio 9.0 ug/mg 05/20/18 01:17 Urine Sodium 45 mmol/L 05/20/18 01:17 Urine Total Protein 28 mg/dL (5-11.8) H 05/20/18 01:17 Blood Type O POSITIVE 05/19/18 15:30 Antibody Screen Negative 05/19/18 15:30
[2018-05-21] MEDS: COUMADIN PO SCH (17:18)
[2018-05-22] MEDS: HEPARIN/ 0.45% NACL-25,000 UNIT/500 ML 25,000 UNIT/500 ML BAG IV SCH (04:24)
[2018-05-22] MEDS: NITRO-BID 2% TP SCH ×4 (05:35→17:34)
[2018-05-22 06:24] LABS: Hematocrit 43.1 % (35.5-45.6); Hemoglobin 14.4 gm/dl (11.8-15.2); INR 1.23 (0.87-1.13); Mean Corpuscular HGB Conc 34 % (32-34); Mean Corpuscular Volume 84 fl (84-94); Platelet Count 182 K/mm3 (140-440); Red Blood Count 5.16 M/mm3 (3.65-5.03); Red Cell Distribution Width 13.5 % (13.2-15.2)
[2018-05-22 06:55] LABS: BUN/Creatinine Ratio 9; Blood Urea Nitrogen 7 mg/dL (9-20); Calcium 8.9 mg/dL (8.4-10.2); Hemolysis Index 41
--- NOTE | 2018-05-22 09:36 | Cat Scan Report ---
FINAL REPORT PROCEDURE: CT abdomen and pelvis without contrast. TECHNIQUE: Computerized axial tomography of the abdomen and pelvis was performed without intravenous contrast. This study is performed without intravascular contrast material and its sensitivity for ab dominal and pelvic pathology, including neoplasms, inflammation, abscess, free fluid, thrombosis, art erial dissection and infarction, is reduced compared with a contrast enhanced study. HISTORY: Syncope. COMPARISON: No prior studies are available for comparison. FINDINGS: The lung bases are clear. There are no pleural effusions. The heart size is normal. There are probabl y 3 tiny cysts within the liver. The gallbladder is partially contracted. There is no biliary dilatat ion. The pancreas and spleen appear normal. The adrenal glands are not enlarged. There are small bila teral renal cysts. There is contrast within the renal collecting systems and bladder. This must be fr om the earlier CT angiogram of the chest study. The abdominal aorta has a normal caliber. There is no retroperitoneal adenopathy. The unopacified gastrointestinal tract is unremarkable. A normal appendi x is visible. The bladder, seminal vesicles and prostate are unremarkable. There are small bilateral inguinal canal hernias containing fat. The regional skeleton appears intact. IMPRESSION: Small hepatic and renal cysts. Small inguinal canal hernias containing fat. No evidence of acute dise ase in the abdomen or pelvis.
[2018-05-22] MEDS: LOPRESSOR PO SCH ×4 (10:25→21:35)
--- NOTE | 2018-05-22 10:43 | Progress Note ---
Assessment and Plan Pt still with c/o dizziness with changes in position. Orthostatics negative this morning. Cont to monitor on telemetry. Optimize BP and HR - increase lopressor dosage. Await venous studies. The patient has been seen in conjunction with Dr. Lua who agrees with the assessment and plan of care. - Patient Problems (1) Acute pulmonary embolism Current Visit: Yes Status: Acute (2) Syncope Current Visit: Yes Status: Acute Qualifiers: Syncope type: unspecified Qualified Code(s): R55 - Syncope and collapse (3) Sinus tachycardia Current Visit: Yes Status: Acute (4) HTN (hypertension) Current Visit: Yes Status: Chronic Subjective Date of service: 05/22/18 Principal diagnosis: PE Interval history: pt resting in bed, c/o lightheadedness with standing upright. tele reviewed - in SR/ST overnight. Objective Last Vital Signs Temp 99.4 F 05/22/18 08:06 Pulse 110 H 05/22/18 10:26 Resp 16 05/22/18 08:06 BP 148/100 05/22/18 10:26 Pulse Ox 100 05/22/18 08:57 - Physical Examination General: No Apparent Distress HEENT: Positive: PERRL Neck: Positive: neck supple Cardiac: Positive: Regular Rhythm, S1/S2 Lungs: Positive: clear to auscultation Neuro: Positive: Grossly Intact Abdomen: Positive: Soft. Negative: Tender - Labs and Meds Coagulation 05/22/18 Range/Units 04:49 PT 15.9 H (12.2-14.9) Sec. INR 1.23 H (0.87-1.13) CBC 05/22/18 Range/Units 04:49 WBC 6.7 (4.5-11.0) K/mm3 RBC 5.16 H (3.65-5.03) M/mm3 Hgb 14.4 (11.8-15.2) gm/dl Hct 43.1 (35.5-45.6) % Plt Count 182 (140-440) K/mm3 Comprehensive Metabolic Panel 05/22/18 Range/Units 04:49 Sodium 140 (137-145) mmol/L Potassium 3.6 (3.6-5.0) mmol/L Chloride 101.3 (98-107) mmol/L Carbon Dioxide 24 (22-30) mmol/L BUN 7 L (9-20) mg/dL Creatinine 0.8 (0.8-1.5) mg/dL Glucose 107 H (75-100) mg/dL Calcium 8.9 (8.4-10.2) mg/dL - Telemetry EKG Rhythm: Sinus Rhythm
[2018-05-22] MEDS ORDERED: LOPRESSOR PO SCH (10:54)
--- NOTE | 2018-05-22 13:26 | Vascular Lab Report ---
FINAL REPORT EXAM: VL VENOUS DUPLEX LE BILAT HISTORY: BILATERAL PULMONARY EMBOLISM COMPARISON: None. TECHNIQUE: Grayscale and Doppler ultrasound of the veins of the bilateral lower extremities was perf ormed. FINDINGS: The veins of the bilateral lower extremities are patent, compressible, and demonstrate normal wavefor ms and augmentation. IMPRESSION: No evidence of deep venous thrombosis in the bilateral lower extremities.
--- NOTE | 2018-05-22 14:23 | Vascular Lab Report ---
FINAL REPORT EXAM: VL CAROTID DUPLEX BILAT HISTORY: SYNCOPE COMPARISON: None. TECHNIQUE: Duplex Doppler ultrasound of the carotid arteries was performed FINDINGS: There is a small of amount of partially calcified plaque in the right carotid bulb and in the right i nternal carotid artery causing less than 50 percent stenosis. The right external carotid artery is pa tent. There is antegrade flow in the right vertebral artery. There is a small amount plaque in the left carotid bulb and proximal internal carotid artery, causing less than 50 percent stenosis. The left external carotid artery is patent. There is antegrade flow i n the left vertebral artery. Peak systolic velocities (cm/sec) are as follows: Right common carotid artery: 160 Right internal carotid artery: 79 Right external carotid artery: 102 Left common carotid artery: 156 Left internal carotid artery: 88 Left external carotid artery: 128 Peak systolic velocity ratio between the right internal carotid artery and the right common carotid a rtery: 0.49 Peak systolic velocity ratio between the left internal carotid artery and left common carotid artery: 0.56 IMPRESSION: Small amount of heterogeneous plaque in the bilateral carotid bulbs and internal carotid arteries cau sing less than 50 percent stenosis.
--- NOTE | 2018-05-22 16:24 | Progress Note ---
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 On admission patient was noted to have bilateral pulmonary embolism Bilateral pulmonary embolism; continue anticoagulation. Patient will be discharged with eliquis. Acute kidney injury secondary to visible nephropathy; resolved with IV fluid Non ST elevation [place] type II; cardiology is following secondary coagulation Hypertensive urgency; controlled with metoprolol Hypokalemia; repleted and resolved Syncope; patient has some dizziness when he stand up. Could be due to deconditioning and encourage ambulation. Discussed his cardiology and was to monitor the patient; optimize his blood pressure medications. History Interval history: Patient was seen and evaluated this morning, patient has dizziness when sitting on the chair. Hospitalist Physical - Physical exam Narrative exam: Not in cardiopulmonary distress. The patient is obese. Vital signs as documented. Head exam is unremarkable. No scleral icterus . Neck is without jugular venous distension, thyromegaly, or carotid bruits. Lungs are clear to auscultation. Cardiac exam reveals regular rate and Rhythm. Abdominal exam reveals normal bowel sounds. Extremities are nonedematous and both femoral and pedal pulses are normal. RESOURCE CONSERVATION MANAGER: Alert and oriented 3. No focal weakness. - Constitutional Vitals: Temp Pulse Resp BP Pulse Ox 99.4 F 79 19 136/82 99 05/22/18 08:06 05/22/18 13:37 05/22/18 10:00 05/22/18 13:37 05/22/18 10:00 General appearance: Present: no acute distress Results - Labs CBC & Chem 7: 05/22/18 04:49 05/22/18 04:49 Labs: Laboratory Last Values WBC 6.7 K/mm3 (4.5-11.0) 05/22/18 04:49 RBC 5.16 M/mm3 (3.65-5.03) H 05/22/18 04:49 Hgb 14.4 gm/dl (11.8-15.2) 05/22/18 04:49 Hct 43.1 % (35.5-45.6) 05/22/18 04:49 MCV 84 fl (84-94) 05/22/18 04:49 MCH 28 pg (28-32) 05/22/18 04:49 MCHC 34 % (32-34) 05/22/18 04:49 RDW 13.5 % (13.2-15.2) 05/22/18 04:49 Plt Count 182 K/mm3 (140-440) 05/22/18 04:49 Lymph % (Auto) 11.5 % (13.4-35.0) L 05/19/18 15:30 Brule % (Auto) 6.6 % (0.0-7.3) 05/19/18 15:30 Eos % (Auto) 0.4 % (0.0-4.3) 05/19/18 15:30 Baso % (Auto) 0.6 % (0.0-1.8) 05/19/18 15:30 Lymph # 1.0 K/mm3 (1.2-5.4) L 05/19/18 15:30 Brule # 0.6 K/mm3 (0.0-0.8) 05/19/18 15:30 Eos # 0.0 K/mm3 (0.0-0.4) 05/19/18 15:30 Baso # 0.1 K/mm3 (0.0-0.1) 05/19/18 15:30 Seg Neutrophils % 80.9 % (40.0-70.0) H 05/19/18 15:30 Seg Neutrophils # 7.4 K/mm3 (1.8-7.7) 05/19/18 15:30 PT 15.9 Sec. (12.2-14.9) H 05/22/18 04:49 INR 1.23 (0.87-1.13) H 05/22/18 04:49 APTT 21.9 Sec. (24.2-36.6) L 05/19/18 15:30 Heparin Anti-Xa Level 0.55 U.I./ml (0.3-0.7) 05/21/18 19:58 Sodium 140 mmol/L (137-145) 05/22/18 04:49 Potassium 3.6 mmol/L (3.6-5.0) 05/22/18 04:49 Chloride 101.3 mmol/L (98-107) 05/22/18 04:49 Carbon Dioxide 24 mmol/L (22-30) 05/22/18 04:49 Anion Gap 18 mmol/L 05/22/18 04:49 BUN 7 mg/dL (9-20) L 05/22/18 04:49 Creatinine 0.8 mg/dL (0.8-1.5) 05/22/18 04:49 Estimated GFR > 60 ml/min 05/22/18 04:49 BUN/Creatinine Ratio 9 % 05/22/18 04:49 Glucose 107 mg/dL (75-100) H 05/22/18 04:49 Lactic Acid 1.80 mmol/L (0.7-2.0) 05/20/18 01:27 Calcium 8.9 mg/dL (8.4-10.2) 05/22/18 04:49 Phosphorus 2.80 mg/dL (2.5-4.5) 05/21/18 04:32 Magnesium 2.00 mg/dL (1.7-2.3) 05/21/18 04:32 Total Bilirubin 0.40 mg/dL (0.1-1.2) 05/19/18 15:30 AST 21 units/L (5-40) 05/19/18 15:30 ALT 26 units/L (7-56) 05/19/18 15:30 Alkaline Phosphatase 52 units/L (35-129) 05/19/18 15:30 Total Creatine Kinase 301 units/L (55-170) H 05/20/18 05:38 CK-MB (CK-2) 2.3 ng/mL (0.0-4.0) 05/20/18 05:38 CK-MB (CK-2) Rel Index 0.7 (0-4) 05/20/18 05:38 Troponin T < 0.010 ng/mL (0.00-0.029) 05/20/18 05:38 NT-Pro-B Natriuret Pep 73.79 pg/mL (0-900) 05/19/18 16:40 Total Protein 7.8 g/dL (6.3-8.2) 05/19/18 15:30 Albumin 4.3 g/dL (3.9-5) 05/19/18 15:30 Albumin/Globulin Ratio 1.2 % 05/19/18 15:30 Triglycerides 107 mg/dL (2-149) 05/19/18 15:30 Cholesterol 230 mg/dL (50-199) H 05/19/18 15:30 LDL Cholesterol Direct 180 mg/dL (50-130) H 05/19/18 15:30 HDL Cholesterol 52 mg/dL (40-59) 05/19/18 15:30 Cholesterol/HDL Ratio 4.42 % 05/19/18 15:30 PTH Intact 45.17 pg/mL (15-65) 05/21/18 04:32 Urine Color Yellow (Yellow) 05/19/18 Unknown Urine Turbidity Clear (Clear) 05/19/18 Unknown Urine pH 6.0 (5.0-7.0) 05/19/18 Unknown Ur Specific [place] 1.009 (1.003-1.030) 05/19/18 Unknown Urine Protein <15 mg/dl mg/dL (Negative) 05/19/18 Unknown Urine Glucose (UA) Neg mg/dL (Negative) 05/19/18 Unknown Urine Ketones Neg mg/dL (Negative) 05/19/18 Unknown Urine Blood Neg (Negative) 05/19/18 Unknown Urine Nitrite Neg (Negative) 05/19/18 Unknown Urine Bilirubin Neg (Negative) 05/19/18 Unknown Urine Urobilinogen < 2.0 mg/dL (<2.0) 05/19/18 Unknown Ur Leukocyte Esterase Neg (Negative) 05/19/18 Unknown Urine WBC (Auto) 1.0 /HPF (0.0-6.0) 05/19/18 Unknown Urine RBC (Auto) 1.0 /HPF (0.0-6.0) 05/19/18 Unknown U Epithel Cells (Auto) < 1.0 /HPF (0-13.0) 05/19/18 Unknown Granular Casts 6 /LPF 05/19/18 Unknown Urine Mucus Few /HPF 05/19/18 Unknown Urine Creatinine 132.0 mg/dL (0.1-20.0) H 05/20/18 01:17 Urine Microalbumin < 1.2 mg/dL (0.1-34.0) 05/20/18 01:17 Microalb/Creat Ratio 9.0 ug/mg 05/20/18 01:17 Urine Sodium 45 mmol/L 05/20/18 01:17 Urine Total Protein 28 mg/dL (5-11.8) H 05/20/18 01:17 Blood Type O POSITIVE 05/19/18 15:30 Antibody Screen Negative 05/19/18 15:30 Nutrition/Malnutrition Assess - Dietary Evaluation Nutrition/Malnutrition Findings: Nutrition Notes Start: 05/21/18 17:13 Freq: Status: Active Protocol: Document 05/21/18 17:13 OL (Rec: 05/21/18 17:14 OL [id number]) Nutrition Notes Need for Assessment generated from: Education Initial or Follow up Brief Note Current Diet cardiac Pertinent Medications coumadin Subjective/Other Information RD screen for coumadin education. #1 Nutrition Diagnosis Food and nutrition-related knowledge deficit Etiology coumadin/vitamin K DNI As Evidenced by Signs and Symptoms pt. has never been on coumadin before, unaware of potential DNI Nutrition Intervention Teaching Recipient Patient Learning Readiness Good Teaching Methods Discussion Handout Response to Teaching Verbalize understanding Education Handouts Provided Vitamin K and medications Barriers to Learning No Barriers RD phone number provided Yes Patient aware of follow up options Yes Revisit per MD consult or patient Sign Off request:
[2018-05-22] MEDS: COUMADIN PO SCH (17:36)
[2018-05-23] MEDS: LOPRESSOR PO SCH ×2 (01:20→09:52)
[2018-05-23 04:55] LABS: Hematocrit 45.5 % (35.5-45.6); Hemoglobin 15.1 gm/dl (11.8-15.2); Mean Corpuscular HGB Conc 33 % (32-34); Mean Corpuscular Volume 84 fl (84-94); Platelet Count 192 K/mm3 (140-440); Red Blood Count 5.39 M/mm3 (3.65-5.03); Red Cell Distribution Width 13.6 % (13.2-15.2)
[2018-05-23 05:09] LABS: INR 1.52 (0.87-1.13)
[2018-05-23 05:19] LABS: BUN/Creatinine Ratio 11; Blood Urea Nitrogen 8 mg/dL (9-20); Calcium 8.9 mg/dL (8.4-10.2); Hemolysis Index 13
[2018-05-23] MEDS: NITRO-BID 2% TP SCH (07:30)
[2018-05-23 08:24] VITALS: BP 165/98
[2018-05-23] MEDS: HEPARIN/ 0.45% NACL-25,000 UNIT/500 ML 25,000 UNIT/500 ML BAG IV SCH (09:54)
--- NOTE | 2018-05-23 10:23 | Discharge Summary ---
Providers - Providers Date of Admission: 05/19/18 22:18 Attending physician: ENEIDA FRAUSTO MD 05/20/18 06:00 Consult to Physician [CONS] Routine Comment: Consulting Provider: ABRAM KIDD Physician Instructions: Reason For Exam: NSTEMI 05/20/18 06:48 Consult to Physician [CONS] Routine Comment: Consulting Provider: BYRON PAYNE Physician Instructions: Reason For Exam: JONAH 05/20/18 11:21 Consult to Physician [CONS] Routine Comment: spoke with Dr Espitia will see pt Consulting Provider: TESHA ESPITIA Physician Instructions: Reason For Exam: Bilateral Pulmonary embolisim. consider EKOS Primary care physician: MARLEY SHIPMAN Hospitalization Reason for admission: PE, HTN Condition: Stable Pertinent studies: CTA IMPRESSION: Acute pulmonary embolism in both lungs. Venous Doppler of the lateral lower extremities IMPRESSION: No evidence of deep venous thrombosis in the bilateral lower extremities. 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 On admission patient was noted to have bilateral pulmonary embolism. Patient was initially treated with heparin drip and was transitioned to eliquis at the time discharge. Patient was given eliquis card and explained what number to call to get the free eliquis and patient said he already started the process. Patient had a hypertensive urgency and put on metoprolol and controlled. Acute kidney injury secondary to visible nephropathy; resolved with IV fluid. Non ST elevation [place] type II; cardiology is following and managed appropriately. Syncope; patient has some dizziness when he stand up and getting better. Evaluated by PT. cardiology cleared him for discharge with follow-up appointment in 1 week at their office. Patient's questions and concerns were addressed at the bedside. Disposition: - TO HOME OR SELFCARE Time spent for discharge: 32 minutes - Discharge Diagnoses (1) Acute pulmonary embolism Status: Acute (2) Chest pain Status: Acute Qualifiers: Chest pain type: unspecified Qualified Code(s): R07.9 - Chest pain, unspecified (3) Hypotension Status: Acute Qualifiers: Hypotension type: unspecified hypotension type Qualified Code(s): I95.9 - Hypotension, unspecified (4) Lactic acid acidosis Status: Acute (5) NSTEMI (non-ST elevated myocardial infarction) Status: Acute (6) Pulmonary embolism Status: Acute Qualifiers: Pulmonary embolism type: unspecified Chronicity: acute Acute cor pulmonale presence: without acute cor pulmonale Qualified Code(s): I26.99 - Other pulmonary embolism without acute cor pulmonale (7) Sinus tachycardia Status: Acute (8) Syncope Status: Acute Qualifiers: Syncope type: unspecified Qualified Code(s): R55 - Syncope and collapse (9) HTN (hypertension) Status: Chronic Core Measure Documentation - Palliative Care Palliative Care/ Comfort Measures: Not Applicable - Core Measures Any of the following diagnoses?: DVT/PE - VTE Discharge Requirements Deep Vein Thrombosis/Pulmonary Embolism Present on Admission: Yes Has pt received <5 days of overlap therapy or INR<2.0: Yes Anticoagulant overlap therapy prescribed at discharge: No Contraindication No Overlap Therapy order at DC: Not Indicated Exam - Physical Exam Narrative exam: Not in cardiopulmonary distress. The patient is obese. Vital signs as documented. Head exam is unremarkable. No scleral icterus . Neck is without jugular venous distension, thyromegaly, or carotid bruits. Lungs are clear to auscultation. Cardiac exam reveals regular rate and Rhythm. Abdominal exam reveals normal bowel sounds. Extremities are nonedematous and both femoral and pedal pulses are normal. 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 No focal weakness. - Constitutional Vitals: Temp Pulse Resp BP Pulse Ox 98.2 F 67 17 165/98 100 05/23/18 04:32 05/23/18 08:53 05/23/18 04:32 05/23/18 07:44 05/23/18 07:44 Plan Activity: no restrictions Weight Bearing Status: Full Weight Bearing Diet: low salt Additional Instructions: F/U at [facility] in 1-2 weeks. Follow up with: MARLEY SHIPMAN MD [Primary Care Provider] - 7 Days ABRAM KIDD MD [Staff Physician] - 7 Days (Follow up in our [place] office with Dr. Keisha Kidd on 06/01/2018 @ 2:00PM. ) Prescriptions: Apixaban [Eliquis] 5 mg PO BID #74 tablet Metoprolol [Lopressor TAB] 100 mg PO BID #60 tablet
--- NOTE | 2018-05-23 11:06 | Progress Note ---
Assessment and Plan BLE venous studies negative for DVT. Currently stable cardiac status. Pt may discharge home from cardiology standpoint. Pt to be discharged on Eliquis per primary. Follow up in our [place] office with Dr. Keisha Caputo on 06/01/2018 @ 2:00PM. The patient has been seen in conjunction with Dr. Lua who agrees with the assessment and plan of care. - Patient Problems (1) Acute pulmonary embolism Current Visit: Yes Status: Acute (2) Syncope Current Visit: Yes Status: Acute Qualifiers: Syncope type: unspecified Qualified Code(s): R55 - Syncope and collapse (3) Sinus tachycardia Current Visit: Yes Status: Acute (4) HTN (hypertension) Current Visit: Yes Status: Chronic Subjective Date of service: 05/23/18 Principal diagnosis: PE Interval history: pt resting up in chair, no current cardiac complaints. tele reviewed - in SR overnight. Objective Last Vital Signs Temp 98.2 F 05/23/18 04:32 Pulse 67 05/23/18 08:53 Resp 17 05/23/18 04:32 BP 165/98 05/23/18 07:44 Pulse Ox 100 05/23/18 07:44 - Physical Examination General: No Apparent Distress HEENT: Positive: PERRL Neck: Positive: neck supple Cardiac: Positive: Reg Rate and Rhythm, S1/S2 Lungs: Positive: clear to auscultation Neuro: Positive: Grossly Intact Abdomen: Positive: Soft. Negative: Tender - Labs and Meds Coagulation 05/23/18 Range/Units 04:36 PT 18.7 H (12.2-14.9) Sec. INR 1.52 H (0.87-1.13) CBC 05/23/18 Range/Units 04:36 WBC 5.3 (4.5-11.0) K/mm3 RBC 5.39 H (3.65-5.03) M/mm3 Hgb 15.1 (11.8-15.2) gm/dl Hct 45.5 (35.5-45.6) % Plt Count 192 (140-440) K/mm3 Comprehensive Metabolic Panel 05/23/18 Range/Units 04:36 Sodium 137 (137-145) mmol/L Potassium 3.8 (3.6-5.0) mmol/L Chloride 103.2 (98-107) mmol/L Carbon Dioxide 24 (22-30) mmol/L BUN 8 L (9-20) mg/dL Creatinine 0.7 L (0.8-1.5) mg/dL Glucose 122 H (75-100) mg/dL Calcium 8.9 (8.4-10.2) mg/dL
== END 2018-05-23 13:40 | disposition home or self-care (01) | DRG 871 ==
LOC: ED 15:13 → 4A 22:18
PROVIDERS: ADMIT Internal Medicine; ATTEND Internal Medicine
DX: A41.9 Sepsis, unspecified organism (principal); I26.99 Other pulmonary embolism without acute cor pulmonale; I21.A1 Myocardial infarction type 2; N17.9 Acute kidney failure, unspecified; E87.6 Hypokalemia; I10 Essential (primary) hypertension; I16.0 Hypertensive urgency
CPT/HCPCS: 36415; 70450; 71275; 74177; 80048; 80053; 80061; 81001; 82043; 82140; 82550; 82553; 83735; 83880; 83970; 84100; 84156; 84300; 84484; 85014; 85018; 85025; 85027; 85520; 85610; 85730; 86850; 86900; 86901; 87116; 93005; 93010; 93306; 93880; 93970; 99292; G0378; J0360; J0692; J1644; J2270; J3480; J7030; J7040; J7050; Q9967